=== PATIENT | female | born 1930 | race Caucasian/White ===

== ENCOUNTER → 2018-09-27 09:29 | Outpatient (CLI) | payer MEDICARE, BC | END | disposition home or self-care (01) | LOC: D.HCCARDIO 09:29 | PROVIDERS: ATTEND Internal Medicine Cardiovascular Disease | DX: I34.0 Nonrheumatic mitral (valve) insufficiency (principal) ==

== ENCOUNTER 2019-04-08 14:04 | Inpatient (IN) | payer MEDICARE, BC ==
[~2019-04-08] VITALS: Ht 175.3 cm; Wt 90.7 kg
[2019-04-08] MEDS ORDERED: PACERONE200 MG PO (14:09)
[2019-04-08] MEDS ORDERED: BISOPROLOL FUMAR5 MG PO (14:09)
[2019-04-08] MEDS ORDERED: CELEXA20 MG PO (14:09)
[2019-04-08] MEDS ORDERED: LEVOXYL75 MCG PO (14:10)
[2019-04-08 14:49] LABS: BASOPHILS 0.6 % (0-2); EOSINOPHILS 3.9 % (0-7); HEMATOCRIT 33.7 % (36.0-48.0); HEMOGLOBIN 11.2 g/dL (12-16); IMMATURE GRANULOCYTES 0.2 % (0-5); LYMPHOCYTES 31.6 % (15-50); MCH 30.8 pg (26.0-34.0); MCHC 33.2 g/dL (31.0-37.0); MCV 92.6 fL (80.0-100.0); MEAN PLATELET VOLUME 11.2 fL (7.4-10.4); MONOCYTES 10.5 % (2-11); NEUTROPHILS 53.2 % (40-80); PLATELET COUNT 206 10x3/uL (130-400); RBC 3.64 10x6/uL (4.00-5.40); RDW 14.3 % (11.5-14.5); WBC 6.5 10x3/uL (4.8-10.8)
[2019-04-08 14:58] LABS: APTT 27.1 SECONDS (22.8-39.4); INR 1.04 (0.85-1.17); PROTIME 13.1 SECONDS (11.6-15.0)
[2019-04-08 15:00] LABS: CALC OSMOLALITY 267 mosm/kg (275-300); CALCIUM 8.6 mg/dL (8.5-10.1); CARBON DIOXIDE 26.7 mmol/L (21.0-32.0); CHLORIDE - SERUM 98 mmol/L (98-107); GLUCOSE 120 mg/dL (74-106); POTASSIUM - SERUM 4.4 mmol/L (3.5-5.1); SODIUM 133 mmol/L (136-145); UREA NITROGEN 15 mg/dL (7-18); eGFR NON AFRICAN AMERICAN 56 mL/min (90-120)
[2019-04-08 15:14] LABS: ALBUMIN 3.7 g/dL (3.4-5.0); ALKALINE PHOSPHATASE 76 U/L (46-116); ALT (SGPT) 27 U/L (10-68); BILIRUBIN - TOTAL 0.33 mg/dL (0.2-1.3); CKMB 1.2 U/L (0.0-3.6); CREATINE KINASE 57 UL (21-215); MAGNESIUM - SERUM 1.9 mg/dL (1.8-2.4); PROTEIN - SERUM 6.9 g/dL (6.4-8.2)
[2019-04-08 15:20] LABS: TROPONIN-I < 0.017 ng/mL (0.000-0.060)
[2019-04-08 17:16] VITALS: BP 125/64
[2019-04-08 18:00] VITALS: BP 132/69
--- NOTE | 2019-04-08 18:00 | NUR ---
WOUND TO RIGHT ARM AND RT POST SCALP CLEANED AND KACIE APPLIED. COVERED WITH TELFA AND GAUZE WRAPPED WITH KERLEX. SECURED WITH TAPE.
--- NOTE | 2019-04-08 18:54 | NUR ---
URINE SENT TO THE LAB.
--- NOTE | 2019-04-08 18:56 | MORECARE ---
CASE MANAGEMENT DISCHARGE SUMMARY PATIENT: RATNA STREET UNIT: [id number] ADM DATE: 04/08/19 AGE: 88 : 32 SEX: F ROOM/BED: D.2214 AUTHOR: WASHINGTON VANEGAS PHYSICIAN: REFERRING PHYSICIAN: COLT HADDAD MD DATE OF SERVICE: 04/08/19 Discharge Plan Patient Name: RATNA STREET [facility] : 1930 Planned Disposition: Anticipated Discharge Date: Discharge Date: Expected LOS: Initial Reviewer: [id number] Initial Review Date: 04/08/2019 Generated: 04/08/19 7:56 pm Coverage Notice Reviewer: [email or web address] - Vibha Burns Notice Issued Date-Time: 04/08/2019 18:40 Notice Type: Medicare Outpatient Observation Notice Notice Delivered To: Patient Relationship to Patient: Self Senior C Software Engineer Name: Ratna Street Delivery Method: HAND - Hand Delivered Antonella Days: Prior Verbal Notification: Recipient Understood Notice: Recipient Signature: Yes Med Rec Note Co-signed by Attending: Coverage Notice Comment: MACIAS delivered to and signed by patient. Original given to patient and also placed on chart. Patient Name: RATNA STREET Page [phone] at 1856 All edits/amendments must be made on the electronic document DICTATION DATE: 04/08/191855 MEDICATION ADMINISTRATION PROFESSIONAL: MICKI 04/08/191855 RPT#: [id number] SD DATE: STATUS: ADM IN [place] [address] [place] [address] END OF REPORT
[2019-04-08 19:03] LABS: APPEARANCE CLOUDY (CLEAR); COLOR YELLOW (YELLOW)
[2019-04-08 19:04] LABS: BILIRUBIN NEGATIVE (NEGATIVE); GLUCOSE NEGATIVE (NEGATIVE); KETONE NEGATIVE (NEGATIVE); NITRITE NEGATIVE (NEGATIVE); PROTEIN TRACE mg/dL (NEGATIVE); SPECIFIC GRAVITY 1.015 (1.005-1.020); UROBILINOGEN NORMAL (NORMAL)
[2019-04-08 19:05] LABS: RED CELLS - URINE OCC /hpf (0-5)
[2019-04-08 19:06] LABS: BACTERIA MANY /hpf (NEGATIVE); EPITHELIAL CELLS 0-5 /hpf (0-5)
--- NOTE | 2019-04-08 19:30 | NUR ---
PT ARRIVED TO THE FLOOR ON STRETCHER. PT ALERT AND ORIENTED. NO SIGNS OF DISTRESS. BREATHING EVEN AND UNLABORED. IV SITE LT HAND DRESSING CLEAN DRY AND INTACT. NO SIGNS OF INFECTION. RT FA LACERATION AND STICHES PRESENT. WRAPPED WITH KERLIX. HEAD WERAPPED WITH KERLIX DRESSING CLEAN DRY AND INTACT. PT STATES NO PAIN OR PROBLEMS AT THIS TIME. BOWEL SOUNDS ACTIVE. LUNG SOUNDS CLEAR. NO LOWER LEG SWELLING PRESENT. WILL CONTINUE PLAN OF CARE. CALL LIGHT IN REACH. BED LOWERED AND LOCKED. BED ALARM ON. SON AT BEDSIDE.
[2019-04-09] VITALS (7 sets, daily range): BP systolic 130–160; BP diastolic 66–87; Ht 175.3 cm; Wt 90.7 kg
--- NOTE | 2019-04-09 07:25 | NUR ---
PT RESTING ON SOB, RESP EVEN AND UNLABORED. PT ALERT AND ORIENTED X 4. DEANN NOTED TO POSTERIOR RIGHT HEAD, NO ACTIVE DRAINING AT THIS TIME. LACERATION TO RIGHT ARM WITH SUTURES INTACT. SITE WITHOUT DRAINAGE AT THIS TIME. PT DENIES PAIN AT THIS TIME. IV TO LEFT HAND WITH NS @ 100ML/HR INFUSING VIA PUMP. SITE WITHOUT REDNESS OR EDEMA. DENIES FURTHER NEEDS AT THIS TIME. CL WITHIN REACH. ENCOURAGED TO CALL WITH NEEDS. CONTINUE POC
[2019-04-09 07:52] LABS: BASOPHILS 0.3 % (0-2); EOSINOPHILS 3.4 % (0-7); HEMATOCRIT 35.2 % (36.0-48.0); HEMOGLOBIN 11.3 g/dL (12-16); IMMATURE GRANULOCYTES 0.3 % (0-5); LYMPHOCYTES 23.8 % (15-50); MCH 29.9 pg (26.0-34.0); MCHC 32.1 g/dL (31.0-37.0); MCV 93.1 fL (80.0-100.0); MEAN PLATELET VOLUME 11.9 fL (7.4-10.4); MONOCYTES 11.7 % (2-11); NEUTROPHILS 60.5 % (40-80); PLATELET COUNT 212 10x3/uL (130-400); RBC 3.78 10x6/uL (4.00-5.40); RDW 14.6 % (11.5-14.5)
[2019-04-09 07:55] LABS: ANION GAP 15.4 mmol/L (8-16); CALCIUM 8.8 mg/dL (8.5-10.1); CARBON DIOXIDE 25.1 mmol/L (21.0-32.0); CREATININE - SERUM 0.9 mg/dL (0.6-1.3); POTASSIUM - SERUM 4.5 mmol/L (3.5-5.1)
--- NOTE | 2019-04-09 20:00 | NUR ---
ASSESSMENT PER FLOWSHEET. SCALP LACERATION TO RT PARIETAL AREA WITH CLIPS IN PLACE. SMALL AMOUNT RED DAINAGE NOTED.IV PATENT LEFT HAND OF NS AT 100CC'S/HR. STITCHES TO LACERATION RT ARM.
--- NOTE | 2019-04-09 21:00 | NUR ---
UP WITH HELP TO BR VOIDS WELL.
[2019-04-10] VITALS: BP 138/72
--- NOTE | 2019-04-10 00:11 | NUR ---
RESTING AT THIS TIME.SR UP X2 CALL LIGHT WITHIN REACH.
[2019-04-10 04:00] VITALS: BP 156/70
--- NOTE | 2019-04-10 04:22 | NUR ---
RESTING QUIETLY DENIES NEEDS.
--- NOTE | 2019-04-10 07:55 | NUR ---
PT SITTING UP ON SIDE OF BED, REQUESTING ASSISTANCE TO AMBULATE TO BATHROOM. ASSISTED PT TO BATHROOM AND BACK TO BED. DEANN INTACT TO RIGHT POSTERIOR HEAD, SMALL DRAINAGE NOTED, BLOOD TINGED. PT DENIES PAIN AT THIS TIME. ALERT AND ORIENTED X 4. IV TO LEFT HAND WITH NS @ 100ML/HR INFUSING VIA PUMP. SITE WITHOUT REDNESS OR EDEMA. LACERATION TO RIGHT FOREARM SUTURES INTACT, NO DRAINAGE NOTED. EDUCATED PT REGARDING NPO STATUS OF NOW FOR CT OF CAROTIDS. PT VOICES UNDERSTANDING. PT DENIES FURTHER NEEDS AT THIS TIME. CL WITHIN REACH. ENCOURAGED TO CALL WITH NEEDS. CONTINUE POC
[2019-04-10 08:28] VITALS: BP 153/72
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
--- NOTE | 2019-04-10 09:45 | MORECARE ---
CASE MANAGEMENT DISCHARGE SUMMARY PATIENT: RATNA STREET UNIT: [id number] ADM DATE: 04/09/19 AGE: 88 : 34 SEX: F ROOM/BED: D.2214 AUTHOR: ROMINADOC PHYSICIAN: REFERRING PHYSICIAN: COLT HADDAD MD DATE OF SERVICE: 04/10/19 Discharge Plan Patient Name: RATNA STREET Facility: [facility]:[place] : 1930 Planned Disposition: Home Anticipated Discharge Date: Discharge Date: Expected LOS: Initial Reviewer: [email or web address] Initial Review Date: 04/08/2019 Generated: 04/10/19 10:45 am Comments DCP- Discharge Planning Updated by [email or web address]: Christy Chilel on 04/10/19 8:[address] Patient Name: RATNA STREET Admission Status: ER Accout number: [id number] Admission Date: 04-09-2019 : 1930 Admission Diagnosis: Attending: COLT HADDAD Current LOS: 1 Anticipated DC Date: Planned Disposition: Home Primary Insurance: MEDICARE A & B Discharge Planning Comments: CM met with patient to complete initial dc planning assessment. CM educated patient on the CM role and verbal consent given by patient to complete assessment. Patient lives at home where she is independent with her care. Her son and sister lives in [place] and she has a daughter who is a RN in [place]. At discharge patient is unsure of where she is going to go. Her daughter wants her to come with her for a little while, but she will wait to see what Dr Haddad says. CM discussed availability of home health, rehab services, and medical equipment. Her son will be her school bus driver/teacher assistant home. She has a cane that she uses and she has a pacemaker. Patient denied known discharge needs at this time. CM will continue to follow and will assist as needed with dc plans/needs Manager Image: Christy Chilel DCPIA - Discharge Planning Initial Assessment Updated by [email or web address]: Christy Chilel on 04/10/19 9:40 am * Is the patient Alert and Oriented? Yes * How many steps to enter\exit or inside your home? * PCP DR HADDAD * [facility] * Preadmission Environment Home Alone * ADLs Independent * Equipment Cane * List name and contact numbers for known caregivers / representatives who currently or will assist patient after discharge: ROBERT ARMSTRONG [phone] * Verbal permission to speak to the caregivers and representatives has been obtained from the patient. Yes * Community resources currently utilized None * Additional services required to return to the preadmission environment? No * Can the patient safely return to the preadmission environment? Yes * Has this patient been hospitalized within the prior 30 days at any hospital? No Coverage Notice Reviewer: [id number] Bro Burns Notice Issued Date-Time: 04/08/2019 18:40 Notice Type: Medicare Outpatient Observation Notice Notice Delivered To: Patient Relationship to Patient: Self Production Support Consultant Name: Ratna Street Delivery Method: HAND - Hand Delivered Antonella Days: Prior Verbal Notification: Recipient Understood Notice: Recipient Signature: Yes Med Rec Note Co-signed by Attending: Coverage Notice Comment: MACIAS delivered to and signed by patient. Original given to patient and also placed on chart. Last DP export: 04/08/19 5:56 p Patient Name: RATNA STREET Page [phone] at 0945 All edits/amendments must be made on the electronic document DICTATION DATE: 04/10/19944 GENERAL MANAGER: MICKI 04/10/19944 RPT#: [id number] DC DATE: STATUS: ADM IN [facility] [address] [place] [address] END OF REPORT
[2019-04-10 13:11] VITALS: BP 188/73
[2019-04-10 16:44] VITALS: BP 186/94
--- NOTE | 2019-04-10 20:00 | NUR ---
ALERT RESTING IN BED, DENIES PAIN OR NEEDS AT THIS TIME, SEE SHIFT ASSESSMENT, CALL LIGHT IN REACH
[2019-04-10 20:24] VITALS: BP 151/76
[2019-04-11 01:07] VITALS: BP 146/67
[2019-04-11 05:09] VITALS: BP 153/78
[2019-04-11 07:59] VITALS: BP 150/77
--- NOTE | 2019-04-11 08:06 | NUR ---
PATIENT RECIVED FROM PREVIOUS SHIFT RESTING WITH NO NEEDS VOICED, CL IN REACH.
[2019-04-11 11:37] VITALS: BP 162/83
--- NOTE | 2019-04-11 13:28 | NUR ---
PATIENT SITTING ON SIDE OF BED TALKING WITH FAMILY MEMBER. NO NEEDS VOICED, CL IN REACH
--- NOTE | 2019-04-11 14:20 | NUR ---
NURSE RECEIVED THIS PATIENT AT 1400. PATIENT SITTING UP ON THE SIDE OF BED. NORMAL SALINE RUNNING INTO IV AT 100CC/HR. LEFT HAND. SON AT BEDSIDE PATIENT VOICES NO NEEDS AT THIS TIME. DISCHARGE ORDERS WRITTEN
--- NOTE | 2019-04-11 16:36 | NUR ---
PATIENT AND SON WAITING FOR DR HADDAD TO WRITE DISCHARGE ORDERS. THIS NURSE TALKED WITH DR MODI NURSE WHO STATED THAT DR HADDAD IS AWARE OF DISCHARGE AND THAT SHE WILL REMIND DR HADDAD TO WRITE ORDERS
--- NOTE | 2019-04-11 17:05 | NUR ---
PATIENT AND SON GIVEN DISCHARGE INSTRUCTIONS. HELPED OUT TO CAR BY STAFF
--- NOTE | 2019-04-12 09:12 | MORECARE ---
CASE MANAGEMENT DISCHARGE SUMMARY PATIENT: RATNA STREET UNIT: [id number] ADM DATE: 04/09/19 AGE: 88 : 34 SEX: F ROOM/BED: D.2214 AUTHOR: ROMINA,DOC PHYSICIAN: REFERRING PHYSICIAN: COLT AHDDAD MD DATE OF SERVICE: 04/12/19 Discharge Plan Patient Name: RATNA STREET Facility: [facility]:[place] : 1930 Planned Disposition: Home Anticipated Discharge Date: Discharge Date: 04/11/2019 Expected LOS: Initial Reviewer: [email or web address] Initial Review Date: 04/08/2019 Generated: 04/12/19 10:11 am DCP- Discharge Planning Updated by [email or web address]: Christy Chilel on 04/10/19 8:[address] Patient Name: RATNA STREET Admission Status: ER Accout number: [id number] Admission Date: 04-09-2019 : 1930 Admission Diagnosis: Attending: COLT HADDAD Current LOS: 1 Anticipated DC Date: Planned Disposition: Home Primary Insurance: MEDICARE A & B Discharge Planning Comments: CM met with patient to complete initial dc planning assessment. CM educated patient on the CM role and verbal consent given by patient to complete assessment. Patient lives at home where she is independent with her care. Her son and sister lives in [place] and she has a daughter who is a RN in [place]. At discharge patient is unsure of where she is going to go. Her daughter wants her to come with her for a little while, but she will wait to see what Dr Haddad says. CM discussed availability of home health, rehab services, and medical equipment. Her son will be her medical driver home. She has a cane that she uses and she has a pacemaker. Patient denied known discharge needs at this time. CM will continue to follow and will assist as needed with dc plans/needs Biztalk Architect: Christy Chilel DCPIA - Discharge Planning Initial Assessment Updated by [email or web address]: Christy Chilel on 04/10/19 9:40 am * Is the patient Alert and Oriented? Yes * How many steps to enter\exit or inside your home? * PCP DR HADDAD * [facility] [address] * Preadmission Environment Home Alone * ADLs Independent * Equipment Cane * List name and contact numbers for known caregivers / representatives who currently or will assist patient after discharge: ROBERT ARMSTRONG [phone] * Verbal permission to speak to the caregivers and representatives has been obtained from the patient. Yes * Community resources currently utilized None * Additional services required to return to the preadmission environment? No * Can the patient safely return to the preadmission environment? Yes * Has this patient been hospitalized within the prior 30 days at any hospital? No Coverage Notice Reviewer: [id number] Bro Burns Notice Issued Date-Time: 04/08/2019 18:40 Notice Type: Medicare Outpatient Observation Notice Notice Delivered To: Patient Relationship to Patient: Self Biomass Boiler Operator Name: Ratna Street Delivery Method: HAND - Hand Delivered Antonella Days: Prior Verbal Notification: Recipient Understood Notice: Recipient Signature: Yes Med Rec Note Co-signed by Attending: Coverage Notice Comment: MACIAS delivered to and signed by patient. Original given to patient and also placed on chart. Last DP export: 04/10/19 8:45 a Patient Name: RATNA STREET Page [phone] at 0912 All edits/amendments must be made on the electronic document DICTATION DATE: 04/12/19910 BALANCER SCALE: MICKI 04/12/19910 RPT#: [id number] DC DATE:04/11/19 STATUS: DIS IN [address] [place] [address] END OF REPORT
== END 2019-04-11 17:06 | disposition home or self-care (01) | DRG 312 ==
LOC: D.ER 14:04 → D.MS 17:57 → OBSVTIME 17:57 → D.MS 04-09 15:24
PROVIDERS: Emergency Medicine; Podiatrist Foot & Ankle Surgery; ADMIT Family Medicine; ATTEND Family Medicine
PROC: 0HQ0XZZ Repair Scalp Skin, External Approach (ICD-10-PCS; principal; 2019-04-08)
PROC: 0HQDXZZ Repair Right Lower Arm Skin, External Approach (ICD-10-PCS; 2019-04-08)
DX: R55 Syncope and collapse (principal); E03.9 Hypothyroidism, unspecified; I10 Essential (primary) hypertension; E78.5 Hyperlipidemia, unspecified; I48.0 Paroxysmal atrial fibrillation; I49.5 Sick sinus syndrome; Z95.0 Presence of cardiac pacemaker; W19.XXXA Unspecified fall, initial encounter; Y92.481 Parking lot as the place of occurrence of the external cause; S01.01XA Laceration without foreign body of scalp, initial encounter; S51.811A Laceration without foreign body of right forearm, initial encounter